=== PATIENT | male | born 1965 | race Caucasian/White ===

== ENCOUNTER 2017-12-14 17:23 | Emergency (ER) | payer BC ==
[2017-12-14 17:45] VITALS: BP 134/93
--- NOTE | 2017-12-14 18:41 | UC ---
Skin Complaint HPI - HPI Summary HPI Summary: rash to R shoulder-back areas. noted this am. has been haying plus thinks had contact with sumac. applied calamine. it is itchy. same in past. - History of Current Complaint Chief Complaint: UCRash Time Seen by Provider: 12/14/17 17:52 Stated Complaint: RASH ON RT SIDE Hx Obtained From: Patient Onset/Duration: Gradual Onset Timing: Constant Pain Intensity: 0 Pain Scale Used: 0-10 Numeric Aggravating Factor(s): Nothing Associated Signs & Symptoms: Positive: Rash. Negative: Fever - Allergy/Home Medications Allergies/Adverse Reactions: Allergies Allergy/AdvReac Type Severity Reaction Status Date / Time Penicillins Allergy Unknown told as a Verified 12/14/17 17:46 kid Home Medications: Home Medications Medication For Toenail Fungus 1 tab DAILY 12/14/17 [History Confirmed 12/14/17] Review of Systems Constitutional: Negative Skin: Rash Eyes: Negative ENT: Negative Respiratory: Negative Cardiovascular: Negative Gastrointestinal: Negative Genitourinary: Negative Motor: Negative Neurovascular: Negative Musculoskeletal: Negative Neurological: Negative Psychological: Negative Is Patient Immunocompromised?: No All Other Systems Reviewed And Are Negative: Yes PMH/Surg Hx/FS Hx/Imm Hx Previously Healthy: Yes - Surgical History Surgical History: None - Family History Known Family History: Positive: None - Social History Occupation: Employed Full-time Alcohol Use: Rare Substance Use Type: None Smoking Status (MU): Never Smoked Tobacco - Immunization History Vaccination Up to Date: Yes Physical Exam Triage Information Reviewed: Yes Appearance: Well-Appearing Vital Signs: Initial Vital Signs Temp 97.8 F 12/14/17 17:36 Pulse 62 12/14/17 17:36 Resp 17 12/14/17 17:36 BP 134/93 12/14/17 17:36 Pulse Ox 99 12/14/17 17:36 Vital Signs Reviewed: Yes Eyes: Positive: Conjunctiva Clear ENT: Positive: Normal ENT inspection Neck: Positive: Supple, Nontender, No Lymphadenopathy Respiratory: Positive: Lungs clear, Normal breath sounds Cardiovascular: Positive: RRR, No Murmur Abdomen Description: Positive: Nontender, No Organomegaly, Soft Bowel Sounds: Positive: Present Musculoskeletal: Positive: ROM Intact Neurological: Positive: Alert Psychological: Positive: Age Appropriate Behavior Skin Exam: Normal Skin: Positive: rashes - liner rashes and some scattered vesicles R shoulder are , R back and cluster on L low back c/w contact dermatitis. Course/Dx - Course Course Of Treatment: no concern for infection or infestation. - Diagnoses Provider Diagnoses: Contact dermatitis Discharge - Sign-Out/Discharge Documenting (check all that apply): Patient Departure - Discharge Plan Condition: Stable Disposition: HOME Prescriptions: methylPREDNISolone [Medrol Dosepak 4 MG*] 0 mg PO .SEE JARON INSTRUCTION #1 tab Patient Education Materials: Contact Dermatitis (ED) Referrals: KRYSTLE Zamora [Medical Doctor] - 5 Days - Billing Disposition and Condition Condition: STABLE Disposition: Home
== END 2017-12-14 18:18 | disposition home or self-care (01) ==
LOC: UCCORT 17:23
DX: L25.9 Unspecified contact dermatitis, unspecified cause (principal); Z88.0 Allergy status to penicillin
CPT/HCPCS: 99212; G0463